=== PATIENT | female | born 1990 | race Caucasian/White ===

== ENCOUNTER 2016-07-19 02:15 | Emergency (ER) | payer OTHER ==
[2016-07-19 05:48] LABS: HEMOGLOBIN 13.9 gm/dl (12.3-15.3); RED BLOOD COUNT 4.42 M/UL (4.00-5.10); WHITE BLOOD COUNT 7.3 K/UL (4.5-11.0)
[2016-07-19 06:06] LABS: BUN/CREATININE RATIO 23 (0-10)
== END 2016-07-19 06:45 | disposition home or self-care (01) ==
LOC: ER1 02:15
PROVIDERS: Family Medicine
DX: G43.909 Migraine, unspecified, not intractable, without status migrainosus (principal); M54.5 Low back pain; R10.9 Unspecified abdominal pain; Z90.49 Acquired absence of other specified parts of digestive tract; Z79.899 Other long term (current) drug therapy
CPT/HCPCS: 36415; 80053; 81001; 83690; 84703; 85025; 96361; 96374; 96375; 99283; J1100; J1885; J2405; J7030

== ENCOUNTER → 2016-07-30 | Outpatient (CLI) | payer OTHER | LOC: RAD 14:17 | DX: M54.2 Cervicalgia (principal); M54.5 Low back pain; M54.6 Pain in thoracic spine; M41.82 Other forms of scoliosis, cervical region; M41.84 Other forms of scoliosis, thoracic region; M41.86 Other forms of scoliosis, lumbar region | CPT/HCPCS: 72040; 72072; 72100 ==

== ENCOUNTER → 2020-04-13 | Outpatient (CLI) | payer OTHER ==
[~2020-04-13] MED LIST: BUSPIRONE HCL7.5 MG PO; CETIRIZINE HCL10 MG PO; COLACE100 MG PO; CYMBALTA60 MG PO; DIAZEPAM VG; DITROPAN 5 MG TA5 MG PO; DOCUSATE SODIU250 MG PO; FLEXERIL 10 MG10 MG PO; HYDROCODONE-AC1 EACH PO; HYDROXYZINE PO; IBUPROFEN600 MG PO; KEFLEX500 MG PO; KLONOPIN0.5 MG PO; NAPROSYN500 MG PO; NORCO 5-325 TA1 EACH PO; NURTEC ODT75 MG PO; PEPCID20 MG PO; PROTONIX40 MG PO; TOPAMAX50 MG PO; VITAMIN B-125000 MC2 PO; VITAMIN D350 MC3 PO; WELLBUTRIN SR150 M1 PO; ZOFRAN4 MG PO
== END ==
LOC: CT 11:21
DX: R31.9 Hematuria, unspecified (principal); N20.0 Calculus of kidney

== ENCOUNTER → 2020-06-28 | Outpatient (CLI) | payer OTHER ==
[2020-06-28 09:32] LABS: HEMOGLOBIN 15.1 gm/dl (12.3-15.3); RED BLOOD COUNT 4.96 M/UL (4.00-5.10); WHITE BLOOD COUNT 8.8 K/UL (4.5-11.0)
== END ==
LOC: OPSV2 08:00
PROVIDERS: Obstetrics & Gynecology
DX: Z01.812 Encounter for preprocedural laboratory examination (principal); M62.89 Other specified disorders of muscle
CPT/HCPCS: 81001; 85025

== ENCOUNTER 2020-07-02 06:51 | Day surgery (SDC) | payer OTHER ==
[~2020-07-02 06:51] MED LIST changes: -DIAZEPAM VG; -DITROPAN 5 MG TA5 MG PO; -DOCUSATE SODIU250 MG PO; -HYDROCODONE-AC1 EACH PO; -NURTEC ODT75 MG PO; -VITAMIN B-125000 MC2 PO; -VITAMIN D350 MC3 PO
[2020-07-02] MEDS ORDERED: NURTEC ODT75 MG PO (07:29)
[2020-07-02] MEDS ORDERED: VITAMIN D350 MC3 PO (07:30)
[2020-07-02] MEDS ORDERED: VITAMIN B-125000 MC2 PO (07:31)
[2020-07-02] MEDS ORDERED: DIAZEPAM VG (07:32)
[2020-07-02] MEDS ORDERED: DOCUSATE SODIU250 MG PO (10:41)
[2020-07-02] MEDS ORDERED: HYDROCODONE-AC1 EACH PO (10:41)
[2020-07-02] MEDS ORDERED: DITROPAN 5 MG TA5 MG PO (10:41)
[2020-07-02] MEDS ORDERED: IBUPROFEN600 MG PO (10:41)
== END 2020-07-02 13:55 | disposition home or self-care (01) ==
LOC: OR 06:51 → OB 13:13 → OR 13:55
DX: N80.0 Endometriosis of uterus (principal); N81.81 Perineocele; M62.89 Other specified disorders of muscle; G43.109 Migraine with aura, not intractable, without status migrainosus; K21.9 Gastro-esophageal reflux disease without esophagitis; F43.10 Post-traumatic stress disorder, unspecified; F32.9 Major depressive disorder, single episode, unspecified; F41.9 Anxiety disorder, unspecified; Z88.1 Allergy status to other antibiotic agents; Z88.2 Allergy status to sulfonamides; Z88.4 Allergy status to anesthetic agent; Z79.899 Other long term (current) drug therapy
CPT/HCPCS: 84703; C1769; J0690; J1100; J1885; J2250; J2370; J2405; J2704; J3010; J7120

== ENCOUNTER → 2020-11-21 | Outpatient (CLI) | payer OTHER ==
[~2020-11-21] MED LIST changes: +DIAZEPAM VG; +DITROPAN 5 MG TA5 MG PO; +DOCUSATE SODIU250 MG PO; +HYDROCODONE-AC1 EACH PO; +NURTEC ODT75 MG PO; +VITAMIN B-125000 MC2 PO; +VITAMIN D350 MC3 PO
== END ==
LOC: HEART 5 11:30
DX: R00.2 Palpitations (principal)

== ENCOUNTER 2021-04-12 17:14 | Emergency (ER) | payer OTHER | END 2021-04-12 18:22 | disposition left against medical advice (07) | LOC: ER1 17:14 | DX: R10.2 Pelvic and perineal pain (principal); Z88.1 Allergy status to other antibiotic agents | CPT/HCPCS: 99284 ==

== ENCOUNTER 2021-06-05 11:48 | Emergency (ER) | payer OTHER ==
[2021-06-05 12:30] LABS: HEMOGLOBIN 15.1 gm/dl (12.3-15.3); RED BLOOD COUNT 4.78 M/UL (4.00-5.10); WHITE BLOOD COUNT 6.8 K/UL (4.5-11.0)
[2021-06-05 13:00] LABS: BUN/CREATININE RATIO 13 (0-10)
[2021-06-05] MEDS ORDERED: METOPROLOL TART25 MG PO (19:38)
== END 2021-06-05 19:45 | disposition home or self-care (01) ==
LOC: ER1 11:48
PROVIDERS: Physician Assistant
DX: R00.2 Palpitations (principal)
CPT/HCPCS: 71045; 80053; 82550; 82553; 84439; 84443; 84484; 85025; 93005; 99285

== ENCOUNTER → 2021-07-22 | Outpatient (CLI) | payer OTHER ==
[~2021-07-22] MED LIST changes: +METOPROLOL TART25 MG PO
== END ==
LOC: HEART 5 15:56
DX: R00.0 Tachycardia, unspecified (principal)

== ENCOUNTER → 2021-10-18 | Outpatient (CLI) | payer OTHER | LOC: CATH 10:00 | DX: R55 Syncope and collapse (principal) ==

== ENCOUNTER → 2021-10-22 | Outpatient (CLI) | payer OTHER | LOC: KOH-I 10-21 08:00 | DX: J32.9 Chronic sinusitis, unspecified (principal); R51.9 Headache, unspecified; R43.8 Other disturbances of smell and taste | CPT/HCPCS: 70486 ==

== ENCOUNTER → 2021-10-22 | Outpatient (CLI) | payer OTHER | LOC: HEART 5 10:00 | DX: I47.1 Supraventricular tachycardia (principal); R06.02 Shortness of breath; R55 Syncope and collapse; R07.9 Chest pain, unspecified; I07.1 Rheumatic tricuspid insufficiency | CPT/HCPCS: 93306 ==

== ENCOUNTER → 2021-11-25 | Day surgery (SDC) | payer OTHER ==
[~2021-11-25] MED LIST changes: +CEPHALEXIN500 MG PO; +LOPRESSOR 25 MG25 MG PO; +PREDNISONE 20 M20 MG PO; +XYZAL5 MG PO
== END | disposition home or self-care (01) ==
LOC: OR 06:15
DX: J32.9 Chronic sinusitis, unspecified (principal); J34.2 Deviated nasal septum; J34.3 Hypertrophy of nasal turbinates; R51.9 Headache, unspecified; K21.9 Gastro-esophageal reflux disease without esophagitis; F41.9 Anxiety disorder, unspecified; F32.A Depression, unspecified; Z79.899 Other long term (current) drug therapy; Z88.2 Allergy status to sulfonamides; Z88.8 Allergy status to other drugs, medicaments and biological substances
CPT/HCPCS: C1726; J0171; J0690; J1100; J1170; J1885; J2001; J2250; J2405; J2704; J3010